=== PATIENT | male | born 1985 | race Caucasian/White ===

== ENCOUNTER 2019-06-12 10:18 | Emergency (ER) | payer OTHER ==
[~2019-06-12] VITALS: Ht 165.1 cm; Wt 69.9 kg
[2019-06-12 10:36] VITALS: BP 135/73
[2019-06-12] MEDS ORDERED: HYDROCODONE/APAP 10/325MG 1 EA TABLET PO ONE (11:00)
[2019-06-12] MEDS ORDERED: HYDROCODONE/APAP 10/325MG 1 EA TABLET ONE (11:07)
== END 2019-06-12 11:26 | disposition home or self-care (01) ==
LOC: ER 10:20
DX: S52.571A Other intraarticular fracture of lower end of right radius, initial encounter for closed fracture (principal); W18.39XA Other fall on same level, initial encounter; Y93.89 Activity, other specified; Y92.89 Other specified places as the place of occurrence of the external cause; Y99.8 Other external cause status
CPT/HCPCS: 73110